=== PATIENT | female | born 1970 | race Caucasian/White ===

== ENCOUNTER → 2023-10-23 14:22 | Outpatient (REF) | payer OTHER, SELFPAY | LOC: RAD 14:22 | PROVIDERS: ATTENDING PHYSICIAN Specialist; FAMILY PHYSICIAN Family Medicine | DX: R10.84 Generalized abdominal pain (principal) | CPT/HCPCS: 76700 ==

== ENCOUNTER → 2023-10-25 06:36 | Day surgery (SDC) | payer OTHER, SELFPAY | LOC: GI 06:36 | PROVIDERS: ATTENDING PHYSICIAN Specialist; FAMILY PHYSICIAN Family Medicine | DX: Z12.11 Encounter for screening for malignant neoplasm of colon (principal); R19.7 Diarrhea, unspecified; K64.8 Other hemorrhoids; K22.89 Other specified disease of esophagus; K31.89 Other diseases of stomach and duodenum; R11.2 Nausea with vomiting, unspecified; R10.13 Epigastric pain; Z86.010 Personal history of colon polyps; Z80.0 Family history of malignant neoplasm of digestive organs | CPT/HCPCS: 45380; 43239; 88305; 88342 ==

== ENCOUNTER 2024-05-26 07:12 | Emergency (ER) | payer OTHER, SELFPAY ==
[2024-05-26 07:16] VITALS: BP 173/113
--- NOTE | 2024-05-26 08:08 | ED.GENMED ---
History of Present Illness
General
Chief Complaint: Musculo-Skeletal Complaint
Source: patient and family
Time Seen by Provider: 05/26/24 08:00
History of Present Illness
History of Present Illness:
53-year-old female presents emergency department with complaints of left-sided neck pain that started after she suffered from a 'stomach flu, with repeated episodes of vomiting after Thanksgiving. She thought she had a pinched nerve from excessive
vomiting and went to an urgent care where she was prescribed a muscle relaxant and steroids. This did not help her and so she saw her primary and was prescribed Neurontin and another dose of steroids. This provided moderate relief. Last night,
the 'spasms' got significantly worse which prompted her visit here. Her last dose of medication was last night and it was Tylenol PM. She notes that ice to the area can sometimes help. She feels like the pain is worse if she lets her arm hang
down and she will intermittently feel tingling in the dorsal aspect of her arm. She denies recent trauma or falls, fever, chills, history of injections, chest pain, shortness of breath, abdominal pain, or other complaints.
Past History
Past History
ED Past Medical History: Cancer, GERD, Other (Chronic back pain, migraines, degenerative disc disease) and Other (Irritable bowel syndrome.)
ED Past Surgical History: Gynecological, Tonsilectomy and Other (tubal Ligation)
Social History
Tobacco: Smoker
Alcohol: Occasional
Drug: Marijuana
Living: alone
Employment: Employed
Family History
Family History: Other (Noncontributory)
Phy Exam
Physical Exam
Physical Exam:
GENERAL: Alert , crying, pacing around the room
EYE: pupils equal and reactive
NECK: Supple, no significant adenopathy, no midline tenderness, no swelling noted, trachea midline
ENT: o/p clr, mmm, voice clear.
CARDIAC: Regular rate and rhythm .
LUNGS: Clear breath sounds bilaterally, no acute respiratory distress, no wheezes/rales/rhonchi
ABDOMEN: Soft, without focal tenderness, no r/g
NEUROLOGICAL: Alert and oriented, no focal neuro deficits
SKIN: Warm and dry, skin intact.
MUSCULOSKELETAL: No edema, well perfused.
PSYCH: Normal and appropriate interaction.
Course
Orders/Labs/Results
Orders:
Orders
05/26/24 08:07
Ketorolac [Toradol] 15 mg IV NOW STA
Morphine Sulfate 4 mg IV NOW STA
diazePAM [Valium Injection] 2 mg IV NOW STA
05/26/24 08:25
CR Cervical Spine 4 Or 5 Vw Urgent
Comment:
Reason For Exam: L sided spasm
05/26/24 08:57
Lidocaine [Lidocaine 4% Patch] 1 patch TOPICAL NOW STA
Apply Lidocaine patch(s) to:: L post neck
05/26/24 08:58
diazePAM [Valium Injection] 2 mg IV NOW STA
Vital Signs
Initial and Last Documented VS:
Initial Vital Signs
Temp Pulse Resp BP Pulse Ox
98.7 F 88 18 173/113 99
05/26/24 07:16 05/26/24 07:16 05/26/24 07:16 05/26/24 07:16 05/26/24 07:16
Last Documented Vital Signs
Temp Pulse Resp BP Pulse Ox
98.7 F 88 18 173/113 99
05/26/24 07:16 05/26/24 07:16 05/26/24 07:16 05/26/24 07:16 05/26/24 07:16
*Critical Care Note
Total Time (30-74mins, 75-104mins- exclusive of procedures): Not Applicable
Update Note
Update Note:
Patient presents to the Emergency Department with _left lateral neck pain
Number and Complexity of Problems Addressed at the Encounter
� Chronic conditions affecting care:
� Acute Exacerbation and/or Progression of Chronic Illness:
� Differential Diagnosis includes: But not limited to cervical disc disease, muscle strain, etc. etc.
Amount and/or Complexity of Data to be Reviewed and Analyzed
� I performed an independent evaluation of and my interpretation is:
EKG:
CT:
Xrays: cspine- read by me,nad. read by issa Camilo Straightening of the normal cervical lordotic curvature.
Degenerative changes.
No findings to suggest recent cervical spine fracture.
Laboratory Studies:
Other:
� Review of other/old records reveals:
� Clinical information was obtained by an independent historian: Mother who is bedside
� Prescriptions/Medications Considered but not given:
� Further testing considered but not performed:
Risk of Complications and/or Morbidity or Mortality of Patient Management
� Social determinants of health affecting care:
� Discussion with other providers (PCP, Hospitalists, Consultants, etc):
� Escalation of care including admission/observation vs risk of discharge considered: 911 AM pt felt better initially, feels pain coming back, will remedicate. No acute neuro sxs, i.e. loss of sensation, motor weakness, cn
findings, etc.
942 am Pt feeling better, eager to go home. Mom with her. Do not identify 'redflag' findings on hx/physical to suggest more worrisome illness such as dissection, epidural abscess, etc. Neuro intact. Suspect radiculopathy related to possible
nerve impingement. D/w pt import of f/u and reasons to rted.
ED Attending Note
-
Portions of this chart may have been created with voice recognition software.� Occasional wrong word or��sound alike� substitutions may have occurred due to the inherent limitations of voice recognition software.
Discharge Plan
Departure
Patient Disposition: Home (Routine Discharge)
Date of Disposition: 05/26/24
Time of Disposition: 09:43
Patient with high blood pressure during this ER visit?: Yes
Condition: Good
Discharge Problem:
Neck pain
Instructions: Radiculopathy of the neck and back (including sciatica), BLOOD PRESSURE
Prescriptions:
New
oxycodone-acetaminophen [Percocet] 5-325 mg tablet
1 tab PO Q4HPRN PRN (Reason: pain) Qty: 14 0RF
diazepam [Valium] 2 mg tablet
2 mg PO BID PRN (Reason: muscle spasm) Qty: 10 0RF
lidocaine [Lidoderm] 5 % adhesive patch,medicated
1 patch topical DAILY Qty: 15 0RF
No Action
atorvastatin 10 MG tablet
10 mg PO QPM 0RF
amlodipine 5 MG tablet
5 mg PO DAILY 0RF
acetaminophen [Tylenol Extra Strength] 500 MG tablet
1,000 mg PO PRN PRN (Reason: pain)
celecoxib 200 MG capsule
200 mg PO BID 0RF
acetaminophen [Tylenol Extra Strength] 500 MG tablet
1,000 mg PO Q6H 0RF
oxycodone 5 MG tablet
5 mg PO Q4HPRN PRN (Reason: breakthru mild - moderate pain) 0RF
cefdinir [Omnicef] 300 MG capsule
300 mg PO BID 5 Days Qty: 10 0RF
prochlorperazine maleate [Compazine] 10 mg tablet
10 mg PO Q8H PRN (Reason: nausea and vomiting) Qty: 10 0RF
tramadol 50 mg tablet
50 mg PO TID PRN (Reason: Pain) Qty: 10 0RF
oxycodone 5 mg capsule
5 mg PO TID PRN (Reason: Pain) Qty: 10 0RF
Referrals:
Negro Elmore DO [Family Provider] -
Timmy Lee MD [Active] - Next open appointment
Activity Restrictions/Additional Instructions:
IF YOU DEVELOP WEAKNESS, FEVER, REPEATED VOMITING, SWELLING/REDNESS/WARMTH OF NECK AREA, GET WORSE, DO NOT GET BETTER, OR OTHER WORRISOME SIGNS, GO TO THE ER IMMEDIATELY!
DO NOT TAKE NARCOTICS OR OTHER SEDATING MEDICATIONS THAT YOU MAY HAVE BEEN RECENTLY PRESCRIBED WHILE TAKING TODAY'S MEDICATIONS. THIS IS VERY IMPORTANT.
Interventions
Interventions:
*Risk Screen - Suicide Last Done: 05/26/24 07:16
*General Assessment Last Done: 05/26/24 07:16
*Neglect/Abuse Screening Last Done: 05/26/24 07:16
Discharge Date and Time
Print Language: FAROESE
[2024-05-26] MEDS: MORPHINE SULFATE 4 MG IV (08:18)
[2024-05-26] MEDS: VALIUM INJECTION 2 MG IV ×2 (08:19→09:03)
[2024-05-26] MEDS: TORADOL 15 MG IV (08:19)
[2024-05-26] MEDS: LIDOCAINE 4% PATCH 1 PATCH TOPICAL (09:02)
[2024-05-26 09:46] VITALS: BP 133/87
== END 2024-05-26 09:54 | disposition home or self-care (01) ==
LOC: EMR 07:12
PROVIDERS: EMERGENCY PHYSICIAN Emergency Medicine; FAMILY PHYSICIAN Family Medicine
DX: M54.2 Cervicalgia (principal); K21.9 Gastro-esophageal reflux disease without esophagitis; G89.29 Other chronic pain; F17.200 Nicotine dependence, unspecified, uncomplicated
CPT/HCPCS: 96374; 96375; 96376; 99284; 72050

== ENCOUNTER 2025-01-30 14:57 | Emergency (ER) | payer OTHER, SELFPAY ==
[2025-01-30 15:04] VITALS: BP 151/108
--- NOTE | 2025-01-30 15:41 | ED.GENMED ---
History of Present Illness
General
Chief Complaint: Blood Pressure Problem
Source: patient
Exam Limitations: none
Time Seen by Provider: 01/30/25 15:36
History of Present Illness
History of Present Illness:
54yoF with history of hypertension, hyperlipidemia, tobacco use, and remote history of breast cancer in remission presenting for evaluation after an episode of chest pain. Patient was at work about an hour ago. She learned that her stepmother
and was anxious. She started to experience pain underneath her bilateral rib cage which was followed by some right sided jaw discomfort. She started to panic and thought she was having a heart attack. Her coworker checked her blood
pressure which was 140/117. Symptoms lasted about 5 minutes before resolving. She believes she had a panic attack and states she is now embarrassed that she is here. Patient is asymptomatic currently. She denies any associated shortness of
breath, nausea, vomiting, diaphoresis.
Past History
Past History
ED Past Medical History: Cancer, GERD, Other (Chronic back pain, migraines, degenerative disc disease) and Other (Irritable bowel syndrome.)
ED Past Surgical History: Gynecological, Tonsilectomy and Other (tubal Ligation)
Social History
Tobacco: Smoker
Alcohol: Occasional
Drug: Marijuana
Personal:
Living: alone
Employment: Employed
Family History
Family History: Other (Noncontributory)
Phy Exam
General Physical Exam
General Presentation: well appearing and no apparent distress
General Skin: warm and dry
General Habitus: normal
General Mental: alert
ENT Exam
ENT Exam: normocephalic
Cardiovascular Exam
Cardiovascular Exam: regular rate/rhythm, no edema and no murmur
Pulmonary Exam
Pulmonary Exam: lungs clear, no respiratory distress, no rales, no crackles, no rhonchi and no wheezing
Neurological Exam
Neurological Exam: alert
[place] Coma Scale
Eye Opening: Spontaneous
Verbal Response: Oriented
Motor Response: Obeys Commands
GCS Total Score: 15
Skin Exam
Skin Exam: normal color and warm/dry
Psychiatric Exam
Psychiatric Exam: normal mood/affect
Course
Orders/Labs/Results
Orders:
Orders
01/30/25 14:59
Electrocardiogram (*1) Urgent
Reason for Study: Hypertension, Benign
EKG- Treatment ONCE
01/30/25 15:15
CMP [Comprehensive Metabolic Panel] Urgent
Complete Blood Count/With Diff Urgent
Troponin I Urgent
01/30/25 15:50
CR Chest - 2 Views Urgent
Comment:
Reason For Exam: CP
01/30/25 16:49
EKG- Treatment ONCE
Abnormal Lab Results
01/30/25
15:15
WBC 11.7 H 10^3/uL
(4.8-10.8)
Absolute Neuts (auto) 7.3 H 10^3/uL
(1.4-6.5)
Absolute Monos (auto) 0.7 H 10^3/uL
(0.1-0.6)
Albumin 5.1 H g/dl
(3.5-5.0)
01/30/25 15:15
01/30/25 15:15
Vital Signs
Initial and Last Documented VS:
Initial Vital Signs
Temp Pulse Resp BP Pulse Ox
97.9 F 94 18 151/108 98
01/30/25 15:04 01/30/25 15:04 01/30/25 15:04 01/30/25 15:04 01/30/25 15:04
Last Documented Vital Signs
Temp Pulse Resp BP Pulse Ox
97.9 F 80 18 120/96 99
01/30/25 15:04 01/30/25 16:30 01/30/25 16:30 01/30/25 16:30 01/30/25 16:30
MDM/Problems Addressed
Differential Diagnosis Includes:
54yoF here after an episode of chest pain that lasted about 5 minutes. Now asymptomatic. Believes she had a panic attack. She is mildly hypertensive on arrival with otherwise stable vitals. She is well-appearing in no distress and exam reassuring.
Differential diagnosis includes but is not limited to: Angina, ACS, panic attack, esophageal spasm, less likely PE
Initial ED plan: EKG obtained in triage which shows normal sinus rhythm without ischemic changes. Will check cardiac labs and chest x-ray.
*Pulse Oximetry
SaO2: 98
Oxygen Mode of Delivery: Room air
Patient hypoxic: no (98%)
*EKG
Interpreted by ED Provider?: Yes
EKG Intrepretation Date: 01/30/25
Heart Rate: 87
Rate: normal
Rhythm: sinus
[place]: normal axis
Interval: normal interval
QRS Pattern: normal QRS
Ischemia: no ischemia
*Critical Care Note
Total Time (30-74mins, 75-104mins- exclusive of procedures): Not Applicable
Update Note
Update Note:
Labs unremarkable including normal troponin. Chest x-ray is clear. Recommended delta troponin/EKG given that symptoms started about 1 hour prior to arrival. Patient is declining repeat testing stating she feels much better and has not had any
recurrent chest pains. Blood pressure improved to 120/96 without intervention. She was advised to follow-up with her PCP and return to the ED with any new or worsening symptoms. She was discharged stable condition.
ED Attending Note
-
Portions of this chart may have been created with voice recognition software.� Occasional wrong word or��sound alike� substitutions may have occurred due to the inherent limitations of voice recognition software.
Discharge Plan
Departure
Patient Disposition: Home (Routine Discharge)
Date of Disposition: 01/30/25
Time of Disposition: 17:19
Patient with high blood pressure during this ER visit?: No
Discharge Problem:
Chest pain
Instructions: Chest pain in adults - ED (DC)
Prescriptions:
No Action
atorvastatin 10 MG tablet
10 mg PO QPM 0RF
amlodipine 5 MG tablet
5 mg PO DAILY 0RF
acetaminophen [Tylenol Extra Strength] 500 MG tablet
1,000 mg PO PRN PRN (Reason: pain)
celecoxib 200 MG capsule
200 mg PO BID 0RF
acetaminophen [Tylenol Extra Strength] 500 MG tablet
1,000 mg PO Q6H 0RF
oxycodone 5 MG tablet
5 mg PO Q4HPRN PRN (Reason: breakthru mild - moderate pain) 0RF
cefdinir [Omnicef] 300 MG capsule
300 mg PO BID 5 Days Qty: 10 0RF
prochlorperazine maleate [Compazine] 10 mg tablet
10 mg PO Q8H PRN (Reason: nausea and vomiting) Qty: 10 0RF
tramadol 50 mg tablet
50 mg PO TID PRN (Reason: Pain) Qty: 10 0RF
oxycodone 5 mg capsule
5 mg PO TID PRN (Reason: Pain) Qty: 10 0RF
oxycodone-acetaminophen [Percocet] 5-325 mg tablet
1 tab PO Q4HPRN PRN (Reason: pain) Qty: 14 0RF
diazepam [Valium] 2 mg tablet
2 mg PO BID PRN (Reason: muscle spasm) Qty: 10 0RF
lidocaine [Lidoderm] 5 % adhesive patch,medicated
1 patch topical DAILY Qty: 15 0RF
Referrals:
Negro Elmore DO [Family Provider, Family Practice]
Activity Restrictions/Additional Instructions:
Please call on Sunday to schedule a follow-up appointment with your family doctor. Return to the ER immediately with any new or worsening symptoms.
Interventions
Interventions:
*Risk Screen - Suicide Last Done: 01/30/25 15:45
*General Assessment Last Done: 01/30/25 15:45
*Neglect/Abuse Screening Last Done: 01/30/25 15:45
*ED- Fall Risk Assessment Last Done: 01/30/25 15:45
*ED COVID-19 Vaccine History Last Done: 01/30/25 15:45
*Nursing Disposition Last Done: 01/30/25 17:32
ED- Cardiac Assessment Last Done: 01/30/25 15:45
ED- Neurological Assessment Last Done: 01/30/25 15:45
ED- Pulmonary Assessment Last Done: 01/30/25 15:45
Discharge Date and Time
Discharge Date/Time: 01/30/25 17:32
Print Language: ESTONIAN
[2025-01-30 15:45] LABS: Hematocrit 43.6 % (37.0-47.0); Hemoglobin 14.8 g/dL (12.0-16.0); Mean Corp Hgb Conc. 33.9 g/dL (33.0-37.0); Mean Corpuscular Volume 85.3 fL (81.0-99.0); Nucleated Red Blood Cells % 0 %; Platelet Count 287 10^3/uL (130-400); Red Cell Dist. Width 12.9 % (11.5-14.5)
[2025-01-30 15:46] LABS: ALT (SGPT) 19 U/L (0-35); AST (SGOT) 18 U/L (14-36); Albumin 5.1 g/dl (3.5-5.0); Alkaline Phosphatase 105 U/L (38-126); Blood Urea Nitrogen 12 mg/dl (7-17); Calcium 10.1 mg/dl (8.4-10.2); Carbon Dioxide 23 mmol/L (22-30); Chloride 107 mmol/L (98-107); Glucose 95 mg/dl (70-99); Potassium 4.3 mmol/L (3.5-5.1); Sodium 140 mmol/L (135-145); Total Protein 7.8 g/dl (6.3-8.2); eGFR > 60.00
[2025-01-30 15:59] LABS: Troponin I < 0.012 ng/ml
[2025-01-30 16:30] VITALS: BP 120/96
== END 2025-01-30 17:32 | disposition home or self-care (01) ==
LOC: EMR 14:57
PROVIDERS: Student in an Organized Health Care Education/Training Program; EMERGENCY PHYSICIAN Emergency Medicine; FAMILY PHYSICIAN Family Medicine
DX: R07.9 Chest pain, unspecified (principal); E78.5 Hyperlipidemia, unspecified; F17.200 Nicotine dependence, unspecified, uncomplicated; Z85.3 Personal history of malignant neoplasm of breast
CPT/HCPCS: 99285; 71046; 80053; 84484; 85025; 93005

== ENCOUNTER 2025-05-13 07:01 | Outpatient (RCR) | payer OTHER, SELFPAY | END 2025-05-20 23:59 | disposition home or self-care (01) | LOC: RPT 07:01 | PROVIDERS: ATTENDING PHYSICIAN Orthopaedic Surgery Orthopaedic Surgery of the Spine; FAMILY PHYSICIAN Family Medicine | DX: M48.02 Spinal stenosis, cervical region (principal); Z73.6 Limitation of activities due to disability; G89.29 Other chronic pain | CPT/HCPCS: 97110; 97140; 97163 ==